=== PATIENT | female | born 1935 | race Two or more races ===

== ENCOUNTER 2018-03-05 15:11 | Inpatient (IN) | payer SELFPAY ==
[2018-03-05 16:35] LABS: BASO # 0.1 x10^3/uL (0.0-0.2); BASO % 0 % (0-3); EOS % 0 % (0-3); HEMATOCRIT 27.5 % (36.0-47.0); HEMOGLOBIN 8.8 g/dL (12.0-15.5); LYMPH # 2.4 x10^3/uL (1.0-4.8); LYMPH % 10 % (24-48); MEAN CORPUSCULAR HEMOGLOBIN 23 pg (25-35); MEAN CORPUSCULAR HGB CONC 32 g/dL (31-37); MEAN CORPUSCULAR VOLUME 73 fL (79-100); MONO # 1.8 x10^3/uL (0.0-1.1); MONO % 7 % (0-9); NEUT # 20.2 x10^3uL (1.8-7.7); NEUT % 83 % (31-73); PLATELET COUNT 496 x10^3/uL (140-400); RED BLOOD COUNT 3.77 x10^6/uL (3.50-5.40); RED CELL DISTRIBUTION WIDTH 20.9 % (11.5-14.5); WHITE BLOOD COUNT 24.4 x10^3/uL (4.0-11.0)
[2018-03-05 16:37] LABS: ADD MAN DIFF? YES
[2018-03-05 16:38] LABS: PROTHROMBIN TIME PATIENT 12.3 SEC (11.7-14.0)
[2018-03-05] MEDS: ONDANSETRON ODT 4 MG TAB.RAPDIS. PO (16:42)
[2018-03-05] MEDS: FAMOTIDINE 20 MG TABLET. PO (16:43)
[2018-03-05] MEDS: ASPIRIN CHEWABLE 81 MG TABLET. PO (16:43)
[2018-03-05 16:45] LABS: ANION GAP 7 (6-14); BLOOD UREA NITROGEN 42 mg/dL (7-20); BUN/CREATININE RATIO 38 (6-20); CALCIUM 8.5 mg/dL (8.5-10.1); CARBON DIOXIDE 25 mmol/L (21-32); CHLORIDE 98 mmol/L (98-107); CREATININE 1.1 mg/dL (0.6-1.0); GFR 47.6; GLUCOSE 115 mg/dL (70-99); POTASSIUM 4.7 mmol/L (3.5-5.1); SODIUM 130 mmol/L (136-145)
[2018-03-05 16:48] LABS: TROPONINI < 0.017 ng/mL (0.000-0.055)
[2018-03-05 16:51] LABS: ALBUMIN 2.8 g/dL (3.4-5.0); ALBUMIN/GLOBULIN RATIO 0.6 (1.0-1.7); ALK PHOS 94 U/L (46-116); ALT (SGPT) 17 U/L (14-59); AST (SGOT) 18 U/L (15-37); LIPASE 138 U/L (73-393); TOTAL BILIRUBIN 0.3 mg/dL (0.2-1.0); TOTAL PROTEIN 7.6 g/dL (6.4-8.2)
[2018-03-05 16:51] LABS: THYROID STIM HORMONE (TSH) 0.551 uIU/mL (0.358-3.74)
[2018-03-05 16:54] LABS: CKMB MASS < 0.5 ng/mL (0.0-3.6); CREATINE KINASE 48 U/L (26-192)
[2018-03-05 16:54] LABS: NT-PRO BNP 619 pg/mL (0-449)
[2018-03-05] MEDS: IOHEXOL 300 MG/ML 100ML VIAL. IV (17:56)
[2018-03-05] MEDS ORDERED: CONTRAST GIVEN MC (18:00)
[2018-03-05] MEDS: IV NORMAL SALINE 1000ML BAG 1,000 ML IV ×3 (18:20→19:30)
[2018-03-05 18:29] LABS: BILIRUBIN,URINE NEGATIVE (NEG); CLARITY,URINE CLEAR; COLOR,URINE YELLOW; GLUCOSE,URINE NEGATIVE (NEG); NITRITE,URINE POSITIVE (NEG); PROTEIN,URINE NEGATIVE (NEG-TRACE); UROBILINOGEN,URINE 0.2 mg/dL (0.2 mg/dL)
[2018-03-05 18:34] LABS: RBC,URINE RARE /HPF (0-2)
[2018-03-05 18:35] LABS: BACTERIA,URINE MANY /HPF (0-FEW); SQUAMOUS EPITHELIAL CELL,UR MOD /LPF; WBC,URINE RARE /HPF (0-4)
[2018-03-05 18:40] LABS: BARBITURATES NEG (NEG); BENZODIAZEPINES NEG (NEG); CANNABINOIDS NEG (NEG); COCAINE NEG (NEG); METHADONE NEG (NEG); OPIATES NEG (NEG); PHENCYCLIDINE NEG (NEG)
[2018-03-05 18:46] LABS: AMPHETAMINE/METHAMPHETAMINE NEG (NEG); ETHANOL, URINE NEG (NEG)
[2018-03-05 18:54] LABS: % LYMPHS 11 % (24-48); % MONOS 5 % (0-10); % SEGS 84 % (35-66); PLATELET CLUMP PRESENT; PLT ESTIMATE INCREASED (ADEQUATE)
[2018-03-05 18:56] LABS: OVALOCYTES OCC
[2018-03-05 18:57] LABS: CRENATED RBC PRESENT; SCHISTOCYTES OCC
[2018-03-05] MEDS ORDERED: ACETAMINOPHEN 325 MG TABLET. PO (19:30)
[2018-03-05] MEDS ORDERED: MORPHINE SULFATE 4 MG/ML DISP.SYRIN. IV (19:30)
[2018-03-05] MEDS ORDERED: ONDANSETRON PF 4 MG/2 ML VIAL. IV ×2 (19:30)
[2018-03-05 20:21] LABS: TROPONIN BY ISTAT 0.01 ng/ml (<0.08)
[2018-03-05] MEDS: FAMOTIDINE 20 MG/2 ML VIAL IVP (21:22)
[2018-03-06] MEDS: ACETAMINOPHEN 500 MG TABLET PO (05:35)
[2018-03-06 08:29] LABS: ADD MAN DIFF? NO
[2018-03-06 08:35] LABS: BASO # 0.1 x10^3/uL (0.0-0.2); BASO % 0 % (0-3); EOS # 0.2 x10^3/uL (0.0-0.7); EOS % 1 % (0-3); HEMATOCRIT 23.8 % (36.0-47.0); HEMOGLOBIN 7.5 g/dL (12.0-15.5); LYMPH # 2.3 x10^3/uL (1.0-4.8); LYMPH % 13 % (24-48); MEAN CORPUSCULAR HEMOGLOBIN 23 pg (25-35); MEAN CORPUSCULAR HGB CONC 32 g/dL (31-37); MEAN CORPUSCULAR VOLUME 73 fL (79-100); MONO # 1.2 x10^3/uL (0.0-1.1); MONO % 7 % (0-9); NEUT # 14.5 x10^3uL (1.8-7.7); NEUT % 80 % (31-73); PLATELET COUNT 419 x10^3/uL (140-400); RED BLOOD COUNT 3.25 x10^6/uL (3.50-5.40); RED CELL DISTRIBUTION WIDTH 21.2 % (11.5-14.5); WHITE BLOOD COUNT 18.1 x10^3/uL (4.0-11.0)
[2018-03-06 08:56] LABS: ALBUMIN 2.3 g/dL (3.4-5.0); ALBUMIN/GLOBULIN RATIO 0.6 (1.0-1.7); ALK PHOS 90 U/L (46-116); ALT (SGPT) 13 U/L (14-59); ANION GAP 7 (6-14); AST (SGOT) 15 U/L (15-37); BLOOD UREA NITROGEN 25 mg/dL (7-20); BUN/CREATININE RATIO 31 (6-20); CALCIUM 7.9 mg/dL (8.5-10.1); CARBON DIOXIDE 23 mmol/L (21-32); CHLORIDE 105 mmol/L (98-107); CREATININE 0.8 mg/dL (0.6-1.0); GFR 68.7; GLUCOSE 90 mg/dL (70-99); POTASSIUM 4.3 mmol/L (3.5-5.1); SODIUM 135 mmol/L (136-145); TOTAL BILIRUBIN 0.3 mg/dL (0.2-1.0); TOTAL PROTEIN 6.4 g/dL (6.4-8.2)
[2018-03-06] MEDS: IV NORMAL SALINE 1000ML BAG 1,000 ML IV ×2 (09:28→22:03)
[2018-03-06 11:44] LABS: % SAT IRON 4 % (15-34); IRON,SERUM 12 ug/dL (50-170)
[2018-03-06 12:14] LABS: AMYLASE 26 U/L (25-115); LIPASE 97 U/L (73-393)
[2018-03-06 12:14] LABS: DIRECT BILIRUBIN 0.1 mg/dL (0.0-0.2)
[2018-03-06] MEDS: ENOXAPARIN 30 MG/0.3 ML SYRINGE. SQ (14:37)
[2018-03-06] MEDS: cefTRIAXone IV Push 1 GM VIAL. IVP (19:57)
[2018-03-06] MEDS: LACTOBACILLUS RHAMNOSUS GG 1 CAPSULE. PO (22:02)
[2018-03-06] MEDS: FAMOTIDINE 20 MG/2 ML VIAL IVP (22:02)
[2018-03-07 03:53] LABS: HEMATOCRIT 22.9 % (36.0-47.0); HEMOGLOBIN 7.6 g/dL (12.0-15.5); MEAN CORPUSCULAR HEMOGLOBIN 24 pg (25-35); MEAN CORPUSCULAR HGB CONC 33 g/dL (31-37); MEAN CORPUSCULAR VOLUME 73 fL (79-100); PLATELET COUNT 426 x10^3/uL (140-400); RED BLOOD COUNT 3.12 x10^6/uL (3.50-5.40); RED CELL DISTRIBUTION WIDTH 21.4 % (11.5-14.5); WHITE BLOOD COUNT 10.8 x10^3/uL (4.0-11.0)
[2018-03-07 04:16] LABS: ALBUMIN 2.3 g/dL (3.4-5.0); ALBUMIN/GLOBULIN RATIO 0.5 (1.0-1.7); ALK PHOS 84 U/L (46-116); ALT (SGPT) 14 U/L (14-59); ANION GAP 9 (6-14); AST (SGOT) 18 U/L (15-37); BLOOD UREA NITROGEN 22 mg/dL (7-20); BUN/CREATININE RATIO 31 (6-20); CALCIUM 7.7 mg/dL (8.5-10.1); CARBON DIOXIDE 23 mmol/L (21-32); CHLORIDE 105 mmol/L (98-107); CREATININE 0.7 mg/dL (0.6-1.0); GFR 80.1; GLUCOSE 90 mg/dL (70-99); POTASSIUM 3.9 mmol/L (3.5-5.1); SODIUM 137 mmol/L (136-145); TOTAL BILIRUBIN 0.2 mg/dL (0.2-1.0); TOTAL PROTEIN 6.5 g/dL (6.4-8.2)
[2018-03-07] MEDS: LACTOBACILLUS RHAMNOSUS GG 1 CAPSULE. PO (09:00)
[2018-03-07] MEDS: IV NORMAL SALINE 1000ML BAG 1,000 ML IV (11:30)
[2018-03-07] MEDS: ENOXAPARIN 30 MG/0.3 ML SYRINGE. SQ (12:00)
[2018-03-08 13:04] LABS: CA 19-9 14 U/mL (0-35)
[2018-03-08 13:04] LABS: CEA 7.3 ng/mL (0.0-4.7)
== END 2018-03-07 15:30 | disposition home or self-care (01) | DRG 445 ==
LOC: ER 15:11 → 5 SOUTH 19:20
PROVIDERS: Internal Medicine
DX: K80.50 Calculus of bile duct without cholangitis or cholecystitis without obstruction (principal); N10 Acute pyelonephritis; K56.609 Unspecified intestinal obstruction, unspecified as to partial versus complete obstruction; E87.1 Hypo-osmolality and hyponatremia; D50.9 Iron deficiency anemia, unspecified; F17.210 Nicotine dependence, cigarettes, uncomplicated; I71.4 Abdominal aortic aneurysm, without rupture; K21.9 Gastro-esophageal reflux disease without esophagitis; K44.9 Diaphragmatic hernia without obstruction or gangrene; M81.0 Age-related osteoporosis without current pathological fracture; M19.90 Unspecified osteoarthritis, unspecified site; Z53.20 Procedure and treatment not carried out because of patient's decision for unspecified reasons
CPT/HCPCS: 36415; 51701; 71046; 74177; 74181; 76705; 80053; 80307; 81001; 82150; 82248; 82378; 82553; 83540; 83550; 83605; 83690; 83735; 83880; 84443; 84484; 85007; 85025; 85027; 85610; 86301; 87040; 87086; 87186; 93005; 96361; 96365; 97165-GO; 99285; 99285-25; J0690; J0696; J3490; J7030; Q0162; Q9967; S0028